=== PATIENT | female | born 1945 | race Two or more races ===

== ENCOUNTER 2023-03-24 13:42 | Emergency (ER) | payer OTHER ==
[~2023-03-24] VITALS: Ht 157.5 cm; Wt 61.2 kg
== END 2023-03-24 21:03 | disposition home or self-care (01) ==
LOC: ER 13:43
DX: S93.401A Sprain of unspecified ligament of right ankle, initial encounter (principal); X58.XXXA Exposure to other specified factors, initial encounter; Y93.K1 Activity, walking an animal; Y92.488 Other paved roadways as the place of occurrence of the external cause; Y99.9 Unspecified external cause status; Z88.0 Allergy status to penicillin